=== PATIENT | male | born 1980 | race Hispanic/Latino ===

== ENCOUNTER 2020-03-08 05:25 | Emergency (ER) | payer BC, OTHER ==
[2020-03-08 06:48] LABS: Bacteria/HPF None Seen HPF (None Seen); Bilirubin Negative (Negative); Blood, Urine 2+ (Negative); Clarity Clear (Clear); Glucose, Urine (Dipstick) Normal (Negative); Ketone, Urine Negative (Negative); Leukocyte Negative Leu/uL (Negative); Nitrite Negative (Negative); Protein, Urine (Dipstick) 100 mg/dL (Neg-Trace); Specific Gravity, Urine 1.024 (1.002-1.036); Squamous Epithelial 0-3 HPF (0-3); Urobilinogen Normal mg/dL (Less than 2); WBC/HPF 0-3 HPF (0-3); pH, Urine 6.5 (5.0-9.0)
--- NOTE | 2020-03-08 10:18 | CT ---
PRELIMINARY REPORT/[facility]/EMERGENCY AFTER HOURS PROCEDURE: EXAM: CT Abdomen and Pelvis Without Intravenous Contrast CLINICAL HISTORY: Patient presents with intermittent left upper quadrant pain that began 2 days ago. He says he gets spasms of pain that lasts for approximately a minute and are associated with nausea a nd lightheadedness TECHNIQUE: Axial computed tomography images of the abdomen and pelvis without intravenous contrast. CONTRAST: None. COMPARISON: None provided. FINDINGS: LUNG BASES: No basilar airspace consolidation or pleural effusion. LIVER: Unremarkable. GALLBLADDER AND BILE DUCTS: Cholelithiasis. PANCREAS: Unremarkable. SPLEEN: The spleen is borderline enlarged measuring up to 12.4 cm in craniocaudal dimension. Limited evaluation due to lack of intravenous contrast. ADRENAL GLANDS: Unremarkable. KIDNEYS, URETERS, AND BLADDER: 2 mm nonobstructing stone in the lower pole of the left kidney. Left p arapelvic cysts. No hydronephrosis. STOMACH AND BOWEL: No obstruction. No wall thickening. No CT evidence of colitis or acute diverticuli tis. APPENDIX: Normal appendix. PERITONEUM: No free fluid. No free air. LYMPH NODES: No lymphadenopathy. REPRODUCTIVE: Unremarkable as visualized. VASCULATURE: No aortic aneurysm. ABDOMINAL WALL AND SOFT TISSUES: Unremarkable. BONES: No fracture or suspicious osseous abnormality. IMPRESSION: No acute intra-abdominal or pelvic abnormality. Cholelithiasis. No pericholecystic fluid . The spleen is borderline enlarged measuring up to 12.4 cm in craniocaudal dimension. Limited in antony luation due to lack of intravenous contrast. ELECTRONICALLY SIGNED BY: Faye Cheek MD Mar 08, 2020 7:13:23 AM CDT FINAL REPORT CT ABDOMEN AND PELVIS WITHOUT CONTRAST: I agree with the preliminary report given by Dr. Chris Cheek of [facility]. POS: OFF
== END 2020-03-08 08:03 | disposition home or self-care (01) ==
LOC: ERS 05:25
DX: N20.0 Calculus of kidney (principal); G47.30 Sleep apnea, unspecified
CPT/HCPCS: 74176; 81003; 81015

== ENCOUNTER 2020-04-28 13:53 | Outpatient (CLI) | payer OTHER ==
--- NOTE | 2020-04-28 15:21 | CT ---
CT ABDOMEN AND PELVIS WITH IV CONTRAST 04/28/2020 CLINICAL INFORMATION: Microhematuria, UTI, renal stone, renal cyst. COMPARISON: Noncontrast CT abdomen and pelvis on 03/08/2020 Technique: Multiple contiguous axial CT images are obtained through the abdomen and pelvis with IV contrast. Cor onal reformatted images are provided. FINDINGS: Lower Chest: Linear atelectasis is present the left lung base. Lung bases are otherwise clear. Vessels: Abdominal aorta is normal in caliber. Abdomen: Portal vein:Patent Gallbladder: Calculus is again seen at the neck of the gallbladder. The gallbladder is not distended. Liver: Again noted is evidence of fatty infiltration with focal area of fatty sparing adjacent to the gallbladder. Spleen: Enlarged in AP dimensions measuring 16 cm. Pancreas: within normal limits. Adrenals: within normal limits. Kidneys: Subcentimeter too small to characterize hypodense lesion is again seen in the midportion rig ht kidney. Hypodense inferior pole left renal parapelvic cysts are present largest measuring 2.2 cm. No enhancing renal mass is seen in either kidney. No renal or ureteral calculi are seen bilaterally, and there is no evidence of hydronephrosis. Bowel: Normal caliber. Appendix: The appendix is visualized and normal in caliber. Peritoneum: No ascites or free air; no fluid collection. Mesentery and Retroperitoneum: No enlarged mesenteric or retroperitoneal lymph nodes. Abdominal Wall: within normal limits. Pelvis: Reproductive Organs: No pelvic masses. Bladder: Partially distended and normal in appearance. Bones: No suspicious lytic or sclerotic osseous lesions. IMPRESSION: 1. No renal or ureteral calculi are seen bilaterally. 2. Hyperdense inferior pole left renal parapelvic cysts. No enhancing renal mass is identified. 3. Fatty infiltration of the liver. 4. Enlargement of the spleen in AP dimensions. 5. Cholelithiasis.
== END 2020-04-28 13:54 | disposition home or self-care (01) ==
LOC: BICCT 13:53
PROVIDERS: ATTEND Urology
DX: N20.0 Calculus of kidney (principal); R31.29 Other microscopic hematuria; N28.1 Cyst of kidney, acquired; K76.0 Fatty (change of) liver, not elsewhere classified; R16.1 Splenomegaly, not elsewhere classified; K80.20 Calculus of gallbladder without cholecystitis without obstruction; Z87.440 Personal history of urinary (tract) infections
CPT/HCPCS: 74178